=== PATIENT | female | born 1935 | race Caucasian/White ===

== ENCOUNTER 2016-05-21 07:28 | Day surgery (SDC) | payer BC ==
--- NOTE | 2016-05-15 12:44 | PREOP HISTORY & PHYSICAL ---
HISTORY: 80 year old female referred by Dr. Thorpe for cataract surgery. She notes continued issues with reading difficulty. She notes some metamorphopsia symptoms in the left eye as well as "trouble seeing small letters " in general. She denies significant glare symptoms, ghost images, or seeing "starbursts or haloes" around lights at night. The current glasses are from early 2014 but the right lens was replaced by Dr. Skye Woodard, OD less than a year ago. PAST OCULAR HISTORY: Glaucoma suspect based on cup-to-disc ratios / borderline ocular hypertension with a family history of glaucoma (patient's mother), Developing cataracts OU, Macular cyst / hole OS, Compound hyperopic astigmatism and presbyopia OCULAR MEDICATIONS: None PAST MEDICAL HISTORY: Depressive disorder (311) (F32.9)1996 Allergic rhinitis (477.9) (J30.9) Cataract cortical, senile, bilateral (H25.013) Developing cataracts OU. Gastroesophageal reflux disease, esophagitis presence not specified (K21.9) Glaucoma suspect, bilateral (H40.003) Significant cup-to-disc ratio asymmetry and optic nerve cupping OS > OD. Hearing loss (389.8) (H91.90)2010 Bilateral hearing aids, doing well with these. Hypercholesterolemia (272.0) (E78.00) Hyperparathyroidism (252.00) (E21.3) Hypertension goal BP (blood pressure) < 140/90 (I10)2001 Macular degeneration (senile) of retina (H35.30) Age-related macular degeneration OU - wet OS (receiving intra-vitreal anti-VEGF therapy for CNV OS - Dr. Thorpe). Malignant neoplasm of skin (173.9) (C44.90) Right Micah, Dr. Blanco Osteoarthrosis, generalized, involving multiple sites (M15.9) Osteopenia of multiple sites (M85.89) Tinnitus (388.30) (H93.19) Tremor (781.0) (R25.1) Vitamin D deficiency (E55.9) ALLERGIES: No Known Drug Allergies FAMILY HISTORY: Mother History of glaucoma. SOCIAL HISTORY: Alcohol Use Moderate alcohol use. 1 glass of red wine at night Tobacco use Never smoker. Vehicle Driving Yes. CURRENT MEDICATIONS: Acidophilus Probiotic (3 Oral per week) Active. Aspirin (81MG Tablet, 1 Oral daily) Active. Benadryl Allergy (25MG Tablet, 1 Oral daily) Active. Calcium 600/Vitamin D (830-251RY-XIEL Tablet, 2 Oral daily) Active. Centrum Silver (1 Oral daily) Active. Esomeprazole Magnesium (40MG Capsule DR, 1 Oral daily) Active. Estradiol (0.5MG Tablet, 1 (one) Oral daily, Taken starting 04/09/2016) Active. Fexofenadine HCl (180MG Tablet, 1 (one) Oral as needed, Taken starting 2010) Active. (for seasonal allergies) Focus Select w/Lutein (1 two times daily) Active. Hydrocodone-Acetaminophen (5-325MG Tablet, 1 (one) Tablet Oral two times daily , Taken starting 01/22/2016) Active. (Use before and after eye injection) Ibuprofen (800MG Tablet, 1 Tablet Oral two times daily with food, Taken starting 08/16/2015) Active. Losartan Potassium (50MG Tablet, 1 (one) Oral daily, Taken starting 03/27/2016 ) Active. Lovastatin (40MG Tablet, 1 (one) Oral daily, Taken starting 09/06/2015) Active. Meloxicam-Liniment (15MG Kit, 0.5 gram Combination daily) Active. (Dr. Campbell: Meloxicam/Lamotrigine/Lidocaine 2%/Prilocaine. Applied topically daily for left fifth digit pain.) PARoxetine HCl ER (12.5MG Tablet ER 24HR, 1 (one) Oral daily, Taken starting ) Active. TraMADol HCl (50MG Tablet, 1-2 Oral every 6 hours as needed, Taken starting ) Active. Vitamin B Complex-C (1 Oral daily) Active. Zantac (150MG Tablet, 1 Oral as needed) Active. Medications Reconciled PAST SURGICAL HISTORY: Appendectomy Arthroscopy of [id number] Left knee, for meniscal tear. Arthroscopy of Shoulder left Hysterectomy; Abdominal with BSO for endometriosis Jaw surgery age 43, correct underbite and help TMJ Furhugbtmrfofcxct18/2011 Partial, done for hyperparathyroidism and hypercalcemia. Right upper adenoma. Dr. Capps. RAD / BSO continues HRT. Had her RAD-BSO in stages as the result of endometriosis. PHYSICAL EXAMINATION: 04/28/2016 5:21 PM Pulse: 80 (Regular) P.OX: 92% (Room air) BP: 147/88 (Sitting, Left Wrist, Small) Chest and Lung Exam Auscultation Breath sounds - Clear and Symmetric throughout. Cardiovascular Auscultation Rhythm - Regular. Heart Sounds - Normal heart sounds. Murmurs & Other Heart Sounds: Murmur 1 - Location - Sternal Border - Right. Timing - Holosystolic. Grade - III/. OCULAR EXAMINATION: VISUAL ACUITY: with correction (Glasses) OD 20/20 OS 20/40-2 NEAR J5 at 14" WORKING Rx: OD +0.75 + 0.50 x 150 OS [place] + 1.00 x 020 ADD + 3.00 (Trifocal) MANIFEST REFRACTION: OD +0.75 + 0.75 x 160 (20/20 BAT 20/30) No improvement in vision OS +0.50 + 0.75 x 025 (20/40-1 BAT 20/100) No improvement in vision ADD +2.50 (J1+ at 14") Better near vision in trial frames than previous Rx CONFRONTATIONAL VISUAL CARCAMO: Normal to counting fingers in four quadrants OU PUPILS: Round and equal OU with no afferent pupillary defect seen EXTERNAL: Normal OU EXTRA-OCULAR MUSCLES: Versions full OU - orthotropic at both distance and near SLIT LAMP EXAM: LIDS/LASHES: Normal OU CONJUNCTIVA: Quiet OU CORNEA: Clear OU AC: Deep and quiet OU IRIS: Normal OU PUPILS: Round OU - dilated widely OU LENS: 2+ nuclear sclerosis with 2-3+ diffuse cortical cataract changes OD. 2-3 + nuclear sclerosis with 2-3+ cortical cataract changes OS ANTERIOR VITREOUS: No anterior vitreous cells or pigment seen OU TONOMETRY: TIME: 1:55 PM OD: 12 mm Hg OS: 12 mm Hg DILATING gtt: Phenylephrine 2.5% + Tropicamide 1% FUNDUS: C/D: 0.6 OD, 0.8 OS (large optic discs OU, but with significant cupping OS) DISCS: Sharp with clear disc margins OU MACULA: Moderate central pigmentary disturbance with some geographic mottling OD. Central pigmentary disturbance with no sub-retinal fluid or active choroidal neovascularization seen OS today VESSELS: Normal OU PERIPHERY: Posterior vitreous detachment OU with no retinal breaks seen KERATOMETRY: OD 44.72 / 45.05 x 140 OS 44.66 / 44.70 x 155 AXIAL LENGTH: OD 23.07 +/- 0.011 OS 22.92 +/- 0.023 IMPRESSION: Macular degeneration (senile) of retina (H35.30) Story: Age-related macular degeneration OU - wet OS (receiving intra-vitreal anti-VEGF therapy for CNV OS - Dr. Thorpe). Macular degeneration appears to be the major issue limiting the patient's visual acuity OS based upon her symptoms. Dr. Thorpe feels that the cataract is impairing the view of the patient's left retina / macula OS, and may be causing some contrast issues with the vision in the left eye. He is recommending cataract surgery in the patient 's left eye, and the patient concurs and would like to proceed. I let her know that the visual prognosis is quite guarded in the left eye due to the macular degeneration. Cataract cortical, senile, bilateral (H25.013) Story: Developing cataracts OU The cataract OD does not meet criteria for consideration of cataract surgery and the patient denies much in the way of visual symptoms OD. Dr. Thorpe has recommended that the patient have cataract surgery OS. We discussed the refractive goals today and the patient would like to be corrected to a near-plano spherical equivalent postoperatively OS. Glaucoma suspect, bilateral (H40.003) Story: Significant cup-to-disc ratio asymmetry and optic nerve cupping OS > OD. PLAN: Cataract extraction with intra-ocular lens OS, May 21, 2016. Lid soaks and scrubs BID OU (pre-operative blepharitis protocol and antibiotic ointment instructions handout given to patient today). Erythromycin ophthalmic ointment q hs OU as blepharitis prophylaxis (an e-Rx with refills x 1 was sent to [facility] [place] ([phone]) today). BIOMETRY, OPHTHALMIC, BY PARTIAL COHERENCE INTERFEROMETRY (16095) Started Erythromycin 5MG/GM, Apply 1/8 inch Ointment to the eyelashes of both eyes at bedtime, 1 Tube, 04/28/2016, Ref. x1. Started Zymaxid 0.5%, 1 drop(s) four times daily to the operated eye, after surgery, 1 Bottle, 04/28/2016, Ref. x1. Started PrednisoLONE Acetate 1%, 1 drop(s) four times daily in the operated eye , after surgery, 10 Milliliter, 04/28/2016, Ref. x1. MTDD
[~2016-05-21 07:28] MED LIST: APRACLONIDINE 0.5% OPHTH 5 ML BTL OP ONE; BUPIVACAINE HCL/PF 0.75% 10 ML VIAL OP ONE; CIPROFLOXACIN 0.3% OPHTH 25 DROP/2.5 ML BTL OP SCH; CYCLOPENTOLATE HCL 1% OPHTH 2 ML BTL OP SCH; FLURBIPROFEN 0.03% OPHTH 2.5 ML BTL OP SCH; PHENYLEPHRINE 2.5% OPHTH 10 DROP/2 ML BTL OP SCH
[2016-05-21] MEDS ORDERED: BUPIVACAINE HCL/PF 0.75% 10 ML VIAL ONE (07:56)
[2016-05-21] MEDS ORDERED: PHENYLEPHRINE 2.5% OPHTH 10 DROP/2 ML BTL ONE (07:56)
[2016-05-21] MEDS ORDERED: FLURBIPROFEN 0.03% OPHTH 2.5 ML BTL ONE (07:56)
[2016-05-21] MEDS ORDERED: CYCLOPENTOLATE HCL 1% OPHTH 2 ML BTL ONE (07:56)
[2016-05-21] MEDS ORDERED: CIPROFLOXACIN 0.3% OPHTH 25 DROP/2.5 ML BTL ONE (07:56)
[2016-05-21] MEDS ORDERED: APRACLONIDINE 0.5% OPHTH 5 ML BTL ONE (07:56)
[2016-05-21 08:08] VITALS: RESP 16; TEMP 97.7
[2016-05-21 09:18] VITALS: BP 154/70; PULSE 63; O2SAT 93
[2016-05-21] MEDS ORDERED: KETOROLAC 0.45% OPHTH 1 DROP/EACH DROPERETTE ONE (09:24)
[2016-05-21] MEDS ORDERED: BACITRACIN OPHTH OINTMENT 3.5 GM TUBE ONE (09:24)
[2016-05-21] MEDS ORDERED: LIDOCAINE HCL/PF 1% 30 ML VIAL ONE (09:24)
[2016-05-21] MEDS ORDERED: CHONDROITIN/HYALURONIDATE OPHT 0.5 ML KIT ONE (09:25)
--- NOTE | 2016-05-21 17:23 | OPERATIVE REPORT ---
DATE OF SURGERY: 05/21/2016. SURGEON: Diaz Jameson MD ANESTHESIA: Topical with monitored anesthesia care. PREOPERATIVE DIAGNOSIS: Cataract, left eye. POSTOPERATIVE DIAGNOSIS: Cataract, left eye. OPERATION PERFORMED: Cataract extraction by phacoemulsification with posterior chamber intraocular lens, left eye. COMPLICATIONS: None. PROCEDURE: The patient was brought to the operating room where she was placed in the supine position. After the instillation of additional tetracaine drops in the left eye, the eye was prepped and draped in the usual sterile ophthalmic manner. A lid speculum was placed in the left eye, after which an inferior paracentesis was fashioned with 1-mm steel keratome, and 0.2 mL of 1% nonpreserved lidocaine was injected intracamerally followed by Viscoat. A temporal clear corneal incision of 3-mm width was fashioned with a steel keratome. A continuous curvilinear capsulorrhexis was fashioned with a bent-needle cystitome and Utrata forceps under Viscoat. Hydrodissection was carried out with balanced salt solution on an intraocular cannula. The nucleus was noted to rotate freely. Phacoemulsification proceeded in a two-handed fashion utilizing typical phacoemulsification times and bruno, as the nucleus was noted to be 2+ dense. Residual cortical material was then removed with the automated irrigation-aspiration handpiece. The anterior chamber and capsular bag were then reinflated with Provisc, after which an AcrySof model SA60AT foldable acrylic intraocular lens of 21.5 diopters power was placed into the capsular bag. The haptics were rotated with a Y hook and the intraocular lens was noted to center well. Residual viscoelastic was then removed with the automated irrigation-aspiration handpiece , after which the wound edges were hydrated with balanced salt solution. The intraocular pressure at the conclusion of the procedure was physiologic, and there was no evidence of wound leakage upon testing with a Weck Corie sponge. Acular drops and bacitracin ointment were placed in the left eye, and the patient was brought to the recovery area, having tolerated the procedure well. She was given full postoperative instructions. GRABIEL
== END 2016-05-21 09:27 | disposition home or self-care (01) ==
LOC: SDS 07:28
PROVIDERS: ATTEND Ophthalmology
DX: H25.012 Cortical age-related cataract, left eye (principal); H40.003 Preglaucoma, unspecified, bilateral; H35.30 Unspecified macular degeneration; F32.9 Major depressive disorder, single episode, unspecified; E21.3 Hyperparathyroidism, unspecified; E78.00 Pure hypercholesterolemia, unspecified; M15.9 Polyosteoarthritis, unspecified; M85.89 Other specified disorders of bone density and structure, multiple sites; R25.1 Tremor, unspecified; E55.9 Vitamin D deficiency, unspecified; K21.9 Gastro-esophageal reflux disease without esophagitis; J30.9 Allergic rhinitis, unspecified; H93.19 Tinnitus, unspecified ear; Z79.899 Other long term (current) drug therapy
CPT/HCPCS: J0171; V2632